=== PATIENT | female | born 1980 | race Hispanic/Latino ===

== ENCOUNTER → 2018-10-14 | Outpatient (CLI) | payer OTHER, MEDICARE ==
[2018-10-14 13:12] LABS: BASOPHILS % (AUTO) 0.7 % (0.0-5.0); EOSINOPHILS % (AUTO) 1.2 % (0.0-8.0); HEMATOCRIT 38.2 % (36-48); MEAN CORPUSCULAR HEMOGLOBIN 30.8 pg (27.0-33.0); MEAN CORPUSCULAR HGB CONC 33.7 g/dL (32.0-36.0); MEAN CORPUSCULAR VOLUME 91.4 fL (79-99); MONOCYTES % (AUTO) 13.2 % (3.0-13.0); NEUTROPHILS % (AUTO) 66.9 % (40.0-77.0); PLATELET COUNT (AUTO) 266 K/uL (130-400); RED BLOOD CELL COUNT(AUTO) 4.18 MIL/uL (4.00-5.50); RED CELL DISTRIBUTION WIDTH 12.1 % (11.0-15.5); WHITE BLOOD COUNT (AUTO) 8.3 K/uL (4.8-10.8)
[2018-10-14 13:21] LABS: CREATININE 0.6 mg/dL (0.5-1.5); POTASSIUM 4.5 mmol/L (3.5-5.1)
== END | disposition home or self-care (01) ==
LOC: LAB 11:56
PROVIDERS: ATTEND Urology
DX: M54.5 Low back pain (principal)
CPT/HCPCS: 36415; 80048; 85025

== ENCOUNTER → 2018-10-18 | Outpatient (CLI) | payer OTHER, MEDICARE ==
[~2018-10-18] MED LIST: IOHEXOL 350 MG/ML 100ML INFUS..BTL IV ONE
== END | disposition home or self-care (01) ==
LOC: RAH 09:54
PROVIDERS: ATTEND Urology
DX: M47.815 Spondylosis without myelopathy or radiculopathy, thoracolumbar region (principal); K76.0 Fatty (change of) liver, not elsewhere classified; I70.90 Unspecified atherosclerosis; N32.89 Other specified disorders of bladder
CPT/HCPCS: 74178; Q9967

== ENCOUNTER → 2019-01-12 | Outpatient (CLI) | payer OTHER, MEDICARE | END | disposition home or self-care (01) | LOC: RAH 12:55 | PROVIDERS: ATTEND Urology | DX: N39.0 Urinary tract infection, site not specified (principal) | CPT/HCPCS: 76770 ==

== ENCOUNTER → 2019-07-10 | Outpatient (CLI) | payer OTHER, MEDICARE | END | disposition home or self-care (01) | LOC: RAH 12:47 | PROVIDERS: ATTEND Urology | DX: N32.89 Other specified disorders of bladder (principal); R39.14 Feeling of incomplete bladder emptying | CPT/HCPCS: 76770 ==

== ENCOUNTER 2019-09-19 16:00 | Observation (INO) | payer OTHER, MEDICARE ==
[~2019-09-19] VITALS: Ht 180.3 cm; Wt 139.8 kg
[2019-09-19 16:40] VITALS: BP 123/62
[2019-09-19] MEDS ORDERED: CLOB20TA3 PO (17:00)
[2019-09-19] MEDS ORDERED: PERA10TA PO (17:09)
[2019-09-19] MEDS ORDERED: FOLI0.4T2 PO (17:09)
[2019-09-19] MEDS ORDERED: FISH1CAP63 PO (17:09)
[2019-09-19] MEDS ORDERED: CYAN-52 PO (17:09)
[2019-09-19] MEDS ORDERED: LOSA50TA64 PO (17:09)
[2019-09-19] MEDS ORDERED: LEVE10006 PO (17:09)
[2019-09-19] MEDS ORDERED: MELO-106 PO (17:09)
[2019-09-19] MEDS ORDERED: DIAZ5TAB4 PO (17:09)
[2019-09-19] MEDS ORDERED: CALC-1198 PO (17:09)
[2019-09-19] MEDS ORDERED: LORA10TA7 PO (17:10)
[2019-09-19] MEDS ORDERED: [UNRECOGNIZED DRUG - OTHER] PO (17:10)
[2019-09-19] MEDS ORDERED: PROG200C11 PO (17:10)
[2019-09-19] MEDS ORDERED: OMEP40CA13 PO (17:10)
[2019-09-19] MEDS ORDERED: L.AC1CAP6 PO (17:10)
[2019-09-20] VITALS (28 sets, daily range): BP systolic 86–130; BP diastolic 38–71
[2019-09-20] MEDS ORDERED: CEFAZOLIN 3GM /D5W 100ML 100 ML IV SCH (06:00)
[2019-09-20] MEDS ORDERED: CEFAZOLIN SODIUM 1 GM VIAL ONE ×2 (07:40→10:01)
[2019-09-20] MEDS ORDERED: LACTATED RINGERS 1000ML 1,000 ML IV ONE (07:40)
--- NOTE | 2019-09-20 08:05 | NUR ---
PAIN pt denies pain at rest, has pain jaspreet knees when walking Addendum: 09/20/19 at 0806 by GATO SHER RN RN Amended: Links added.
--- NOTE | 2019-09-20 08:14 | NUR ---
SURGICAL PREP surgical site clipper prepped and cleansed with 2% chlorhexidine gluconate cloth Addendum: 09/20/19 at 0817 by GATO SHER RN RN Amended: Links added.
[2019-09-20] MEDS ORDERED: ONDANSETRON HCL 4 MG/2 ML VIAL ONE (09:00)
[2019-09-20] MEDS ORDERED: LIDOCAINE HCL-MPF 1% 5ML AMP IJ ONE (09:00)
[2019-09-20] MEDS ORDERED: PROPOFOL 10 MG/ML 20ML VIAL IV ONE (09:00)
[2019-09-20] MEDS ORDERED: FENTANYL CITRATE PF 50 MCG/1 ML 2ML VIAL ONE ×2 (09:01→11:30)
[2019-09-20] MEDS ORDERED: MIDAZOLAM HCL 1 MG/ML 2ML VIAL ONE (09:01)
[2019-09-20] MEDS ORDERED: ROCURONIUM 10MG/1ML SYR 10 MG/ML ML ONE (09:01)
[2019-09-20] MEDS ORDERED: ROPIVACAINE 0.5% 5MG/ML 30ML IJ ONE (09:05)
[2019-09-20] MEDS ORDERED: BUPIVACAINE/PF 0.25% 30ML VIAL IJ ONE (09:16)
[2019-09-20] MEDS ORDERED: NEOSTIGMINE 5MG/5ML SYR IV ONE (11:16)
[2019-09-20] MEDS ORDERED: GLYCOPYRROLATE 1 MG/5 ML SYRINGE ONE (11:16)
[2019-09-20] MEDS ORDERED: DEXAMETHASONE SOD PHOSPHATE 10MG/ML 1ML VIAL ONE (11:18)
[2019-09-20] MEDS ORDERED: ASPI-1012 PO (11:36)
[2019-09-20] MEDS ORDERED: HYDR-4457 PO (11:36)
[2019-09-20] MEDS ORDERED: CEPH500B PO (11:36)
--- NOTE | 2019-09-20 13:05 | NUR ---
SEIZURE PT STATES THAT SHE HAD SEIZURES IN PACU POST OP, NOT OBSERVED AND NOT DOCUMENTED. PT STATES SHE IS DOING FINE AT THIS TIME, NO SEIZURE AT THIS TIME. SHE STATES SHE JUST FEELS WEAK. WILL NOTIFY BETY AGUILAR
--- NOTE | 2019-09-20 13:15 | NUR ---
LOW BP SBP 80'S-90'S. CALLED AND NOTIFY Janina SOTELO CRNA, ORDERS GIVEN TO GIVE BOLUS OF LR 500 ML. Addendum: 09/20/19 at 1451 by SEAN GRUBBS RN RN ALSO NOTIFIED SOFIE RE: SEIZURE EPISODE.
--- NOTE | 2019-09-20 13:15 | NUR ---
Dr Pike and Kyle Cardona CONSULTANT at the bedside assessing patient orders received.
--- NOTE | 2019-09-20 13:25 | NUR ---
Kyle Cardona CRNA ordered patient could take her home medication Diazepam 5mg PO one time
--- NOTE | 2019-09-20 13:45 | NUR ---
500CC BOLUS GIVEN ORDERED BY CAROLA SOTELO CRYSTALLOGRAPHER
--- NOTE | 2019-09-20 13:50 | NUR ---
Dr. Pimentel here speaking with patient. patient will be admitted to 4th floor
--- NOTE | 2019-09-20 14:15 | NUR ---
REPORT REPORT GIVEN TO MACIEL MCDANIELS RN.
--- NOTE | 2019-09-20 14:20 | NUR ---
patient transported via stretcher to room 429
[2019-09-20] MEDS ORDERED: DIAZEPAM 5 MG TABLET PO PRN (15:30)
[2019-09-20] MEDS ORDERED: HYDROCODONE/ACETAMINOPHEN 5/325 MG TAB PO PRN (15:30)
--- NOTE | 2019-09-20 16:18 | NUR ---
I HAVE INFORMED CICI FORD OF HOSPITALIST CONSULT AND GIVEN HER A HX ON PATIENT; SHE STATED SHE WOULD SEE THE PATIENT
--- NOTE | 2019-09-20 17:09 | NUR ---
1705 had pt sig nMOON Letter,faxed to [phone] and placed in chart under consent tab
[2019-09-20] MEDS ORDERED: ACETAMINOPHEN 325 MG TAB PO PRN (18:30)
[2019-09-20] MEDS ORDERED: ONDANSETRON HCL 4 MG/2 ML VIAL IVP PRN (18:30)
[2019-09-20] MEDS ORDERED: LORAZEPAM 2 MG/ML 1 ML VIAL IVP PRN (18:30)
[2019-09-20] MEDS ORDERED: CEPHALEXIN 500 MG CAPSULE PO SCH (18:30)
[2019-09-20] MEDS: CEFAZOLIN SODIUM 1 GM VIAL IVP SCH (18:56)
[2019-09-20] MEDS: CALCIUM 600 + VITAMIN D 400 TABLET PO SCH (19:43)
[2019-09-20] MEDS: LEVETIRACETAM 500 MG TABLET PO SCH (19:43)
[2019-09-20] MEDS: CYANOCOBALAMIN (VITAMIN B-12) 1,000 MCG TABLET PO SCH (19:43)
[2019-09-20] MEDS: FISH OIL 1000 MG/CAP PO SCH (19:43)
[2019-09-20] MEDS: HYDROCODONE/ACETAMINOPHEN 5/325 MG TAB PO PRN (19:44)
[2019-09-20] MEDS: ENOXAPARIN SODIUM 40 MG/0.4 ML SYRINGE SQ SCH (20:28)
[2019-09-20] MEDS ORDERED: CLOBAZAM PO SCH (21:00)
[2019-09-20] MEDS ORDERED: PROGESTERONE MICRONIZED 200 MG PO SCH (21:00)
[2019-09-20] MEDS ORDERED: [UNRECOGNIZED DRUG - OTHER] PO SCH (21:00)
[2019-09-20] MEDS ORDERED: MELOXICAM 7.5 MG TABLET PO SCH (21:00)
[2019-09-21 00:12] VITALS: BP 100/56
[2019-09-21] MEDS: HYDROCODONE/ACETAMINOPHEN 5/325 MG TAB PO PRN (01:10)
[2019-09-21] MEDS: CEFAZOLIN SODIUM 1 GM VIAL IVP SCH (02:36)
[2019-09-21 03:53] LABS: BASOPHILS % (AUTO) 0.1 % (0.0-5.0); EOSINOPHILS % (AUTO) 0.2 % (0.0-8.0); HEMATOCRIT 31.8 % (36-48); LYMPHOCYTES % (AUTO) 14.5 % (21.0-51.0); MEAN CORPUSCULAR HEMOGLOBIN 29.9 pg (27.0-33.0); MEAN CORPUSCULAR HGB CONC 32.4 g/dL (32.0-36.0); MEAN CORPUSCULAR VOLUME 92.4 fL (79-99); NEUTROPHILS % (AUTO) 77.5 % (40.0-77.0); PLATELET COUNT (AUTO) 248 K/uL (130-400); RED BLOOD CELL COUNT(AUTO) 3.44 MIL/uL (4.00-5.50); RED CELL DISTRIBUTION WIDTH 12.7 % (11.0-15.5); WHITE BLOOD COUNT (AUTO) 11.9 K/uL (4.8-10.8)
[2019-09-21 04:07] LABS: CREATININE 0.8 mg/dL (0.5-1.5); POTASSIUM 3.9 mmol/L (3.5-5.1)
[2019-09-21 07:25] VITALS: BP 103/60
[2019-09-21] MEDS ORDERED: LOSARTAN 50 MG TABLET PO SCH (08:00)
[2019-09-21] MEDS: CALCIUM 600 + VITAMIN D 400 TABLET PO SCH (08:25)
[2019-09-21] MEDS: CYANOCOBALAMIN (VITAMIN B-12) 1,000 MCG TABLET PO SCH (08:25)
[2019-09-21] MEDS: FISH OIL 1000 MG/CAP PO SCH (08:26)
[2019-09-21] MEDS: LEVETIRACETAM 500 MG TABLET PO SCH (08:26)
[2019-09-21] MEDS: ENOXAPARIN SODIUM 40 MG/0.4 ML SYRINGE SQ SCH (08:30)
[2019-09-21] MEDS ORDERED: LORATADINE 10 MG TABLET PO SCH (09:00)
[2019-09-21] MEDS ORDERED: FOLIC ACID 0.4 MG PO SCH (09:00)
[2019-09-21] MEDS ORDERED: PANTOPRAZOLE SODIUM 40 MG TABLET.DR PO SCH (09:00)
[2019-09-21] MEDS ORDERED: ASPIRIN 325 MG TABLET PO SCH (09:00)
[2019-09-21] MEDS ORDERED: ACIDOPH PO SCH (09:00)
[2019-09-21] MEDS ORDERED: POLYETHYLENE GLYCOL 3350 17 GM POWD.PACK PO SCH (09:00)
[2019-09-21] MEDS ORDERED: PERAMPANEL 10 MG PO SCH (09:00)
[2019-09-21] MEDS ORDERED: PARACASEI B LACTIS PO SCH (09:00)
--- NOTE | 2019-09-21 10:06 | NUR ---
PT STATED UNDERSTANDING OF ALL D/C INSTRUCTIONS FOR AFTER CARE FOR ACL TENDON REPAIR; IV ACCESS REMOVED, SCRIPT GIVEN FOR NORCO, ASPIRIN AND KEFLEX AND PT STATED UNDERSTANDING OF USE; PT GOING HOME WITH WALKER AND CRUTCHES FROM HERE AND BEING SET UP WITH WALKER TO BE DELIVERED TO HOME THEN PT SHOULD RETURN THE HOSPITAL WALKER; PT GIVEN WOUND CARE INSTRUCTIONS, AND ACTIVITY INSTRUCTIONS.
== END 2019-09-21 10:20 | disposition home or self-care (01) ==
LOC: DAHIP 09-20 06:54 → 4AH 09-20 14:12 → EDSTATUS 09-20 16:00
PROVIDERS: ADMIT Orthopaedic Surgery; ATTEND Orthopaedic Surgery
DX: S83.282A Other tear of lateral meniscus, current injury, left knee, initial encounter (principal); S83.512A Sprain of anterior cruciate ligament of left knee, initial encounter; E66.01 Morbid (severe) obesity due to excess calories; M22.42 Chondromalacia patellae, left knee; G40.909 Epilepsy, unspecified, not intractable, without status epilepticus; Z79.899 Other long term (current) drug therapy; Z68.41 Body mass index [BMI] 40.0-44.9, adult; X58.XXXA Exposure to other specified factors, initial encounter; Y93.89 Activity, other specified; Y92.89 Other specified places as the place of occurrence of the external cause
CPT/HCPCS: 29881; 29888; 36415; 80048; 81025; 85025; 96372 ×2; 96374; 96376; 97039; 97116; 97161; A4215; A4221; A4222; A4223; A4649 ×5; A4663; A4930 ×2; A6223; A6260; C1713; C1762; C1776; G0378 ×19; G8978; G8979; G8980; G8981; G8982; G8983; J0690 ×4; J1100; J1650 ×2; J2250; J2405; J2704; J2710; J2795; J3010 ×2; J3490 ×2; J7030; J7120

== ENCOUNTER → 2020-02-07 | Outpatient (CLI) | payer OTHER, MEDICARE ==
[~2020-02-07] MED LIST changes: +ASPI-1012 PO; +CALC-1198 PO; +CEPH500B PO; +CLOB20TA3 PO; +CYAN-52 PO; +DIAZ5TAB4 PO; +FISH1CAP63 PO; +FOLI0.4T2 PO; +HYDR-4457 PO; -IOHEXOL 350 MG/ML 100ML INFUS..BTL IV ONE; +L.AC1CAP6 PO; +LEVE10006 PO; +LORA10TA7 PO; +LOSA50TA64 PO; +MELO-106 PO; +OMEP40CA13 PO; +PERA10TA PO; +PROG200C11 PO; +[UNRECOGNIZED DRUG - OTHER] PO
== END | disposition home or self-care (01) ==
LOC: RAH 11:24
PROVIDERS: ATTEND Urology
DX: R39.14 Feeling of incomplete bladder emptying (principal); N31.1 Reflex neuropathic bladder, not elsewhere classified
CPT/HCPCS: 76770

== ENCOUNTER → 2020-08-16 | Outpatient (CLI) | payer OTHER, MEDICARE | END | disposition home or self-care (01) | LOC: RAH 14:57 | PROVIDERS: ATTEND Urology | DX: R39.14 Feeling of incomplete bladder emptying (principal) | CPT/HCPCS: 76770 ==

== ENCOUNTER → 2021-02-12 | Outpatient (CLI) | payer OTHER ==
[~2021-02-12] MED LIST changes: -FOLI0.4T2 PO; +FOLI0.4T6 PO
== END | disposition home or self-care (01) ==
LOC: RAH 13:44
PROVIDERS: ATTEND Urology
DX: R39.14 Feeling of incomplete bladder emptying (principal); N32.89 Other specified disorders of bladder
CPT/HCPCS: 76770

== ENCOUNTER → 2021-08-27 | Outpatient (CLI) | payer OTHER ==
[~2021-08-27] MED LIST changes: -OMEP40CA13 PO; +OMEP40CA21 PO
== END | disposition home or self-care (01) ==
LOC: RAH 13:42
PROVIDERS: ATTEND Urology
DX: R39.14 Feeling of incomplete bladder emptying (principal)
CPT/HCPCS: 76770

== ENCOUNTER → 2023-05-18 | Outpatient (CLI) | payer OTHER ==
[~2023-05-18] MED LIST changes: +CLOB20TA15 PO; -CLOB20TA3 PO
== END | disposition home or self-care (01) ==
LOC: RAH 09:56
PROVIDERS: ATTEND Urology
DX: N31.8 Other neuromuscular dysfunction of bladder (principal)
CPT/HCPCS: 76770

== ENCOUNTER → 2023-10-13 | Outpatient (CLI) | payer OTHER | END | disposition home or self-care (01) | LOC: RAH 13:47 | PROVIDERS: ATTEND Internal Medicine | DX: G44.319 Acute post-traumatic headache, not intractable (principal) | CPT/HCPCS: 70450 ==

== ENCOUNTER → 2024-04-03 | Outpatient (CLI) | payer OTHER ==
[~2024-04-03] MED LIST changes: -CLOB20TA15 PO; +CLOB20TA4 PO
== END | disposition home or self-care (01) ==
LOC: RAH 13:36
PROVIDERS: ATTEND Internal Medicine
DX: Z13.6 Encounter for screening for cardiovascular disorders (principal)
CPT/HCPCS: 75571